=== PATIENT | male | born 1935 | race Caucasian/White ===

== ENCOUNTER 2016-03-22 10:20 | Outpatient (CLI) | payer MEDICARE ==
[2016-03-22 10:52] LABS: Anion Gap 14 mmol/L (10-20); BUN (Urea Nitrogen) 19 mg/dL (8.4-25.7); Calc. Creatinine Clearance 0 mL/min (70-130); Calcium 7.8 mg/dL (7.8-10.44); Carbon Dioxide 30 mmol/L (23-31); Chloride 102 mmol/L (98-107); Estimated GFR-MDRD 45; Glucose 110 mg/dL (83-110); Phosphorus 3.1 mg/dL (2.3-4.7); Potassium 3.8 mmol/L (3.5-5.1); Sodium 142 mmol/L (136-145)
== END 2016-03-22 10:21 | disposition home or self-care (01) ==
LOC: MADLAB 10:20
PROVIDERS: ATTEND Internal Medicine Nephrology
DX: N18.3 Chronic kidney disease, stage 3 (moderate) (principal)
CPT/HCPCS: 36415; 80048; 84100

== ENCOUNTER 2016-09-13 08:46 | Outpatient (CLI) | payer MEDICARE ==
[2016-09-13 10:02] LABS: Anion Gap 19 mmol/L (10-20); BUN (Urea Nitrogen) 22 mg/dL (8.4-25.7); Calc. Creatinine Clearance 0 mL/min (70-130); Calcium 7.7 mg/dL (7.8-10.44); Carbon Dioxide 24 mmol/L (23-31); Chloride 102 mmol/L (98-107); Estimated GFR-MDRD 48; Glucose 120 mg/dL (83-110); Phosphorus 2.9 mg/dL (2.3-4.7); Potassium 3.7 mmol/L (3.5-5.1); Sodium 141 mmol/L (136-145)
== END 2016-09-13 08:47 | disposition home or self-care (01) ==
LOC: MADLAB 08:46
PROVIDERS: ATTEND Internal Medicine Nephrology
DX: N18.3 Chronic kidney disease, stage 3 (moderate) (principal)
CPT/HCPCS: 36415; 80048; 84100

== ENCOUNTER 2017-01-12 08:26 | Emergency (ER) | payer MEDICARE ==
[2017-01-12] MEDS ORDERED: Sodium Chloride Irrig Solution 250 ML BOT ONE (09:42)
== END 2017-01-12 08:55 | disposition home or self-care (01) ==
LOC: MADERS 08:26
DX: T83.098A Other mechanical complication of other urinary catheter, initial encounter (principal); E11.9 Type 2 diabetes mellitus without complications; Z79.899 Other long term (current) drug therapy; Z79.82 Long term (current) use of aspirin
CPT/HCPCS: 99283

== ENCOUNTER 2017-09-19 07:57 | Outpatient (CLI) | payer MEDICARE ==
[2017-09-19 08:13] LABS: #Basophils 0.1 thou/uL (0.0-0.2); #Eosinphils 0.1 thou/uL (0.0-0.7); #Lymphocytes 1.7 thou/uL (1.20-3.40); #Monocytes 0.6 thou/uL (0.11-0.59); #Neutrophils 5.4 thou/uL (1.40-6.50); %Eosinophils 1.5 % (0.0-10.0); %Lymphocytes 21.7 % (21.0-51.0); %Monocytes 7.9 % (0.0-10.0); %Neutrophils 67.9 % (42.0-75.0); Hemoglobin 15.4 g/dL (14.0-18.0); Mean Corpuscular HGB CONC 31.4 g/dL (32.0-36.0); Mean Corpuscular Hemoglobin 27.4 pg (27.0-31.0); Mean Corpuscular Volume 87.4 fL (78.0-98.0); Platelet Count 202 thou/uL (130-400); RBC Distribution Width 12.7 % (11.5-14.5); White Blood Cell (WBC) Count 7.9 thou/uL (4.8-10.8)
[2017-09-19 08:25] LABS: Anion Gap 18 mmol/L (10-20); BUN (Urea Nitrogen) 23 mg/dL (8.4-25.7); Calc. Creatinine Clearance 0 mL/min (70-130); Calcium 9.6 mg/dL (7.8-10.44); Carbon Dioxide 25 mmol/L (23-31); Chloride 103 mmol/L (98-107); Estimated GFR-MDRD 45; Glucose 109 mg/dL (83-110); Phosphorus 2.5 mg/dL (2.3-4.7); Potassium 3.5 mmol/L (3.5-5.1); Sodium 142 mmol/L (136-145)
== END 2017-09-19 07:58 | disposition home or self-care (01) ==
LOC: MADLAB 07:57
PROVIDERS: ATTEND Internal Medicine Nephrology
DX: N18.3 Chronic kidney disease, stage 3 (moderate) (principal)
CPT/HCPCS: 36415; 80048; 83970; 84100; 85025

== ENCOUNTER 2017-12-16 18:50 | Emergency (ER) | payer MEDICARE ==
[~2017-12-16 18:50] MED LIST: Sterile Water Irrigation 250 ML BOT ONE
[2017-12-16 20:14] LABS: Bilirubin Negative (Negative); Blood, Urine Moderate (Negative); Glucose, Urine (Dipstick) Negative (Negative); Leukocyte Moderate (Negative); Nitrite Negative (Negative); Protein, Urine (Dipstick) 30 mg/dL (Neg-Trace); Specific Gravity, Urine 1.015 (1.005-1.030); Urobilinogen 0.2 mg/dL (0.2-1.0)
[2017-12-16 20:15] LABS: Clarity Cloudy (Clear)
[2017-12-16 20:19] LABS: RBC/HPF GREATER THAN 50-TNTC HPF (0-3); Squamous Epithelial 0-3 HPF (0-3)
[2017-12-16 20:20] LABS: Bacteria/HPF 4+ HPF (None Seen)
[2017-12-16] MEDS ORDERED: Sulfameth/Trimethoprim DS 800-160mg TAB ONE (20:25)
== END 2017-12-16 20:30 | disposition home or self-care (01) ==
LOC: MADERS 18:50
DX: T83.098A Other mechanical complication of other urinary catheter, initial encounter (principal); N39.0 Urinary tract infection, site not specified; E11.9 Type 2 diabetes mellitus without complications; Z87.891 Personal history of nicotine dependence
CPT/HCPCS: 81003; 81015; 87077; 87086; 87186; 99283

== ENCOUNTER 2018-02-14 12:57 | Emergency (ER) | payer MEDICARE ==
[2018-02-14] MEDS ORDERED: Sterile Water Irrigation 250 ML BOT ONE (13:04)
== END 2018-02-14 13:57 | disposition home or self-care (01) ==
LOC: MADERS 12:57
DX: T83.018A Breakdown (mechanical) of other urinary catheter, initial encounter (principal); E11.9 Type 2 diabetes mellitus without complications; I10 Essential (primary) hypertension; Z87.891 Personal history of nicotine dependence; Z79.899 Other long term (current) drug therapy; Z79.84 Long term (current) use of oral hypoglycemic drugs
CPT/HCPCS: 99283

== ENCOUNTER 2020-01-27 17:20 | Emergency (ER) | payer MEDICARE ==
[~2020-01-27 17:20] MED LIST changes: +Sodium Chloride 0.9% 1,000 ML BAG ONE; -Sterile Water Irrigation 250 ML BOT ONE
[2020-01-27 18:49] LABS: ALT (SGPT) 11 U/L (8-55); AST (SGOT) 13 U/L (5-34); Albumin 4.1 g/dL (3.4-4.8); Alkaline Phosphatase 49 U/L (40-110); Anion Gap 17 mmol/L (10-20); BUN (Urea Nitrogen) 23 mg/dL (8.4-25.7); Bilirubin, Total 0.3 mg/dL (0.2-1.2); CK (CPK) 45 U/L (30-200); Calc. Creatinine Clearance 0 mL/min (70-130); Calcium 9.4 mg/dL (7.8-10.44); Carbon Dioxide 24 mmol/L (23-31); Chloride 105 mmol/L (98-107); Estimated GFR-MDRD 38; Globulin 3.1 g/dL (2.4-3.5); Glucose 162 mg/dL (83-110); Potassium 3.5 mmol/L (3.5-5.1); Protein, Total 7.2 g/dL (5.8-8.1); Sodium 142 mmol/L (136-145)
[2020-01-27 18:51] LABS: #Basophils 0.1 thou/uL (0.0-0.2); #Eosinphils 0.1 thou/uL (0.0-0.7); #Lymphocytes 1.4 thou/uL (1.20-3.40); #Monocytes 0.7 thou/uL (0.11-0.59); #Neutrophils 6.6 thou/uL (1.40-6.50); %Basophils 1.1 % (0.0-1.0); %Eosinophils 1.3 % (0.0-10.0); %Lymphocytes 15.9 % (21.0-51.0); %Monocytes 7.8 % (0.0-10.0); %Neutrophils 73.9 % (42.0-75.0); Giant Platelets SLIGHT; Hemoglobin 14.4 g/dL (14.0-18.0); Large Platelets SLIGHT; MDiff Complete? YES; Mean Corpuscular HGB CONC 31.6 g/dL (32.0-36.0); Mean Corpuscular Hemoglobin 28.7 pg (27.0-31.0); Platelet Count 220 thou/uL (130-400); Platelet Morphology Comment Appears Adequate; RBC Distribution Width 12.9 % (11.5-14.5); White Blood Cell (WBC) Count 8.9 thou/uL (4.8-10.8)
== END 2020-01-27 19:46 | disposition home or self-care (01) ==
LOC: MADERS 17:20
DX: E86.0 Dehydration (principal); E11.9 Type 2 diabetes mellitus without complications; I10 Essential (primary) hypertension; Z87.442 Personal history of urinary calculi; Z87.891 Personal history of nicotine dependence; Z79.899 Other long term (current) drug therapy; Z79.01 Long term (current) use of anticoagulants
CPT/HCPCS: 80053; 82550; 83605; 84484; 85025; 93005; J7050

== ENCOUNTER 2020-06-12 09:31 | Emergency (ER) | payer MEDICARE ==
[2020-06-12 10:44] LABS: Bilirubin Negative (Negative); Blood, Urine Trace (Negative); Clarity Cloudy (Clear); Glucose, Urine (Dipstick) Negative (Negative); Ketone, Urine Negative (Negative); Leukocyte Large (Negative); Nitrite Negative (Negative); Protein, Urine (Dipstick) 100 mg/dL (Neg-Trace); pH, Urine 8.5 (5.0-9.0)
[2020-06-12 10:48] LABS: #Basophils 0.1 thou/uL (0.0-0.2); #Eosinphils 0.1 thou/uL (0.0-0.7); #Lymphocytes 1.8 thou/uL (1.20-3.40); #Monocytes 0.6 thou/uL (0.11-0.59); #Neutrophils 5.6 thou/uL (1.40-6.50); %Basophils 0.8 % (0.0-1.0); %Eosinophils 1.2 % (0.0-10.0); %Lymphocytes 22.5 % (21.0-51.0); %Monocytes 7.3 % (0.0-10.0); %Neutrophils 68.2 % (42.0-75.0); ALT (SGPT) 23 U/L (8-55); AST (SGOT) 21 U/L (5-34); Albumin 4.1 g/dL (3.4-4.8); Alkaline Phosphatase 58 U/L (40-110); Anion Gap 16 mmol/L (10-20); BUN (Urea Nitrogen) 22 mg/dL (8.4-25.7); Bilirubin, Total 0.8 mg/dL (0.2-1.2); Calc. Creatinine Clearance 0 mL/min (70-130); Calcium 9.5 mg/dL (7.8-10.44); Carbon Dioxide 24 mmol/L (23-31); Chloride 103 mmol/L (98-107); Globulin 3.2 g/dL (2.4-3.5); Glucose 134 mg/dL (83-110); Hemoglobin 16.1 g/dL (14.0-18.0); Large Platelets MODERATE; MDiff Complete? YES; Mean Corpuscular HGB CONC 32.3 g/dL (32.0-36.0); Mean Corpuscular Hemoglobin 28.2 pg (27.0-31.0); Mean Corpuscular Volume 87.5 fL (78.0-98.0); Mean Platelet Volume 14.4 fL (7.4-10.4); Platelet Count 236 thou/uL (130-400); Platelet Morphology Comment Appears Adequate; Potassium 3.3 mmol/L (3.5-5.1); Protein, Total 7.3 g/dL (5.8-8.1); RBC Distribution Width 12.7 % (11.5-14.5); Red Blood Cell (RBC) Count 5.69 mill/uL (4.70-6.10); Sodium 140 mmol/L (136-145); White Blood Cell (WBC) Count 8.2 thou/uL (4.8-10.8)
[2020-06-12 11:01] LABS: Bacteria/HPF 3+ HPF (None Seen); Squamous Epithelial 0-3 HPF (0-3); Triple Phosphate Crystal 3+ HPF (None Seen); WBC/HPF Greater Than 50 HPF (0-3)
== END 2020-06-12 11:25 | disposition home or self-care (01) ==
LOC: MADERS 09:31
DX: E87.6 Hypokalemia (principal); N39.0 Urinary tract infection, site not specified; E11.9 Type 2 diabetes mellitus without complications; I10 Essential (primary) hypertension; Z87.891 Personal history of nicotine dependence; Z79.01 Long term (current) use of anticoagulants; Z79.899 Other long term (current) drug therapy
CPT/HCPCS: 70450; 71045; 80053; 81003; 81015; 84484; 85025; 87086; 93005; 94760

== ENCOUNTER 2020-09-18 17:45 | Emergency (ER) | payer MEDICARE ==
[2020-09-18 18:24] LABS: Bilirubin Negative (Negative); Blood, Urine Large (Negative); Clarity Cloudy (Clear); Glucose, Urine (Dipstick) Negative (Negative); Ketone, Urine Negative (Negative); Leukocyte Small (Negative); Nitrite Positive (Negative); Protein, Urine (Dipstick) 100 mg/dL (Neg-Trace); pH, Urine 6.5 (5.0-9.0)
[2020-09-18 18:30] LABS: RBC/HPF Greater than 50 HPF (0-3)
[2020-09-18 18:31] LABS: Bacteria/HPF 2+ HPF (None Seen); Squamous Epithelial 0-3 HPF (0-3); Yeast-Budding 3+ HPF (None Seen); Yeast-Hyphae 3+ HPF (None Seen)
[2020-09-18] MEDS ORDERED: Water For Inject, Bacteriostat 30 ML ONE (18:38)
[2020-09-18] MEDS ORDERED: cefTRIAXone\\ROCEPHIN 1 GM VIAL ONE (18:38)
== END 2020-09-18 19:05 | disposition home or self-care (01) ==
LOC: MADERS 17:45
DX: N39.0 Urinary tract infection, site not specified (principal); E11.40 Type 2 diabetes mellitus with diabetic neuropathy, unspecified; I10 Essential (primary) hypertension; Z87.442 Personal history of urinary calculi; Z87.891 Personal history of nicotine dependence; Z79.899 Other long term (current) drug therapy; Z79.01 Long term (current) use of anticoagulants
CPT/HCPCS: 81003; 81015; 87086; 96372; 99284; J0696

== ENCOUNTER 2020-11-18 22:18 | Emergency (ER) | payer MEDICARE | END 2020-11-19 00:49 | disposition home or self-care (01) | LOC: MADERS 22:18 | DX: T83.010A Breakdown (mechanical) of cystostomy catheter, initial encounter (principal); E11.9 Type 2 diabetes mellitus without complications; I10 Essential (primary) hypertension; Z87.891 Personal history of nicotine dependence | CPT/HCPCS: 99283 ==

== ENCOUNTER 2020-12-11 12:30 | Emergency (ER) | payer MEDICARE ==
[2020-12-11 16:06] LABS: Bilirubin Negative (Negative); Blood, Urine Large (Negative); Glucose, Urine (Dipstick) Negative (Negative); Ketone, Urine Negative (Negative); Leukocyte Small (Negative); Nitrite Negative (Negative); Protein, Urine (Dipstick) 100 mg/dL (Neg-Trace); Specific Gravity, Urine 1.015 (1.005-1.030); pH, Urine 8.5 (5.0-9.0)
[2020-12-11 16:07] LABS: Clarity Cloudy (Clear)
[2020-12-11 16:08] LABS: Bacteria/HPF 3+ HPF (None Seen); Other Microscopic Description C&S SET UP
== END 2020-12-11 16:25 | disposition home or self-care (01) ==
LOC: MADERS 12:30
DX: T83.011A Breakdown (mechanical) of indwelling urethral catheter, initial encounter (principal); N39.0 Urinary tract infection, site not specified; E11.9 Type 2 diabetes mellitus without complications; I10 Essential (primary) hypertension; Z87.891 Personal history of nicotine dependence
CPT/HCPCS: 81003; 81015; 87077; 87086; 87186; 99284